=== PATIENT | male | born 1945 | race African-American/Black ===

== ENCOUNTER 2017-07-12 14:30 | Inpatient (IN) | payer MEDICARE, BC ==
[~2017-07-12] VITALS: Ht 177 cm; Wt 108.9 kg
[~2017-07-12 14:30] MED LIST: AMBR10TA3 PO; AZEL205. INH; CARV20CP PO; CLOP75TA16 PO; FLUT1DIS ORI; HYDR25TA PO; LOSA50TA20 PO; OMEG-59 PO; SIMV40TA5 PO; TAMS0.4C31 PO
[2017-07-12 16:30] VITALS: BP 124/78
[2017-07-12] MEDS ORDERED: IPRATROPIUM/ALBUTEROL 0.5-3(2.5)MG/3ML NEB HHN PRN (16:45)
[2017-07-12] MEDS ORDERED: BISACODYL 10MG SUPP PR PRN (17:00)
[2017-07-12] MEDS ORDERED: LOSARTAN POTASSIUM 50 MG TABLET PO SCH (17:00)
[2017-07-12] MEDS ORDERED: ACETAMINOPHEN 325MG TABLET PO PRN (17:00)
[2017-07-12] MEDS ORDERED: DEXTROSE 50% WATER 50ML SYRINGE IV PRN (17:00)
[2017-07-12] MEDS ORDERED: RACEPINEPHRINE 2.25% 0.5ML NEB VIAL HHN PRN (18:30)
[2017-07-12 20:00] VITALS: BP 144/71
[2017-07-12] MEDS: METOPROLOL TARTRATE 50MG TABLET PO SCH (20:54)
[2017-07-12] MEDS: ATORVASTATIN CALCIUM 20MG TABLET PO SCH (20:55)
[2017-07-12] MEDS: FINASTERIDE 5MG TABLET PO SCH (20:55)
[2017-07-12] MEDS: APIXABAN 5 MG TABLET PO SCH (20:55)
[2017-07-12] MEDS: TAMSULOSIN HCL 0.4MG SR CAPSULE PO SCH (20:55)
[2017-07-12] MEDS: METOCLOPRAMIDE HCL 5MG TABLET PO SCH ×2 (20:55→23:55)
[2017-07-12] MEDS: AMIODARONE HCL 200 MG TABLET PO SCH (20:55)
[2017-07-12] MEDS: BACITRACIN ZINC 15GM TUBE TOP SCH (20:56)
[2017-07-12] MEDS: INSULIN LISPRO 100 UNITS/ML SUBCUT SCH (21:00)
[2017-07-12] MEDS: METRONIDAZOLE 500MG TABLET PO SCH (21:05)
[2017-07-12] MEDS: HYDRALAZINE HCL 100MG TABLET PO SCH (21:06)
[2017-07-12] MEDS: BLOOD SUGAR DIAGNOSTIC STRIP TEST SCH (21:46)
[2017-07-13] MEDS: HYDRALAZINE HCL 100MG TABLET PO SCH ×3 (06:00→23:40)
[2017-07-13] MEDS: METOCLOPRAMIDE HCL 5MG TABLET PO SCH ×4 (06:11→23:34)
[2017-07-13] MEDS: PANTOPRAZOLE 40MG DR TABLET PO SCH (06:11)
[2017-07-13] MEDS: METRONIDAZOLE 500MG TABLET PO SCH ×3 (06:12→21:50)
[2017-07-13] MEDS: BLOOD SUGAR DIAGNOSTIC STRIP TEST SCH ×4 (06:14→21:51)
[2017-07-13] MEDS: INSULIN LISPRO 100 UNITS/ML SUBCUT SCH ×4 (07:01→21:00)
[2017-07-13 07:17] LABS: BASOPHILS % 0.4 % (0.0-2.0); EOSINOPHILS % 3.7 % (0.0-5.0); HEMATOCRIT. 33.6 % (42.0-52.0); HEMOGLOBIN. 11.3 g/dL (14.0-18.0); LYMPHOCYTES % 8.6 % (20.0-50.0); MEAN CORPUSCULAR HEMOGLOBIN 30.1 pg (28.0-32.0); MEAN CORPUSCULAR VOLUME 89.8 fL (80.0-94.0); MEAN PLATELET VOLUME 10.1 fl (7.4-10.4); MONOCYTES % 9.2 % (2.0-8.0); NEUTROPHILS % 78.1 % (40.0-76.0); PLATELET 228 x1000/uL (130-400); RED BLOOD CELL COUNT 3.75 mill/uL (4.7-6.1); RED CELL DISTRIBUTION WIDTH 14.9 % (11.6-14.6)
[2017-07-13 07:41] LABS: CARBON DIOXIDE 27 mEq/L (21-32); CHLORIDE 107 mEq/L (98-107); PREALBUMIN 26.8 mg/dL (20.0-40.0)
[2017-07-13 08:00] VITALS: BP 124/67
[2017-07-13] MEDS: BACITRACIN ZINC 15GM TUBE TOP SCH ×2 (09:00→21:53)
[2017-07-13] MEDS: POTASSIUM CHLORIDE 20MEQ/PACKET PO SCH (09:12)
[2017-07-13] MEDS: LOSARTAN POTASSIUM 50 MG TABLET PO SCH (09:13)
[2017-07-13] MEDS: DOCUSATE SODIUM 250MG CAPSULE PO SCH (09:13)
[2017-07-13] MEDS: APIXABAN 5 MG TABLET PO SCH ×2 (09:13→17:49)
[2017-07-13] MEDS: LACTOBACILLUS GG CAPSULE PO SCH (09:13)
[2017-07-13] MEDS: FUROSEMIDE 40MG TABLET PO SCH (09:13)
[2017-07-13] MEDS: METOPROLOL TARTRATE 50MG TABLET PO SCH ×2 (09:14→21:51)
[2017-07-13] MEDS: HYDROCHLOROTHIAZIDE 25MG TABLET PO SCH (09:14)
[2017-07-13] MEDS: AMIODARONE HCL 200 MG TABLET PO SCH ×2 (09:14→21:50)
[2017-07-13] MEDS: POLYETHYLENE GLYCOL 3350 (17GM) 1 DOSE PACK PO SCH (09:14)
[2017-07-13 20:00] VITALS: BP 120/57
[2017-07-13] MEDS: FINASTERIDE 5MG TABLET PO SCH (21:50)
[2017-07-13] MEDS: ATORVASTATIN CALCIUM 20MG TABLET PO SCH (21:50)
[2017-07-13] MEDS: TAMSULOSIN HCL 0.4MG SR CAPSULE PO SCH (21:50)
[2017-07-14] MEDS: HYDRALAZINE HCL 100MG TABLET PO SCH ×3 (06:00→22:00)
[2017-07-14] MEDS: PANTOPRAZOLE 40MG DR TABLET PO SCH (06:12)
[2017-07-14] MEDS: METRONIDAZOLE 500MG TABLET PO SCH ×3 (06:12→21:51)
[2017-07-14] MEDS: BLOOD SUGAR DIAGNOSTIC STRIP TEST SCH ×4 (06:12→21:52)
[2017-07-14] MEDS: METOCLOPRAMIDE HCL 5MG TABLET PO SCH ×4 (06:12→23:38)
[2017-07-14] MEDS: INSULIN LISPRO 100 UNITS/ML SUBCUT SCH ×4 (06:13→21:00)
[2017-07-14 08:00] VITALS: BP 125/72
[2017-07-14] MEDS: POLYETHYLENE GLYCOL 3350 (17GM) 1 DOSE PACK PO SCH (09:07)
[2017-07-14] MEDS: APIXABAN 5 MG TABLET PO SCH ×2 (09:07→17:26)
[2017-07-14] MEDS: HYDROCHLOROTHIAZIDE 25MG TABLET PO SCH (09:07)
[2017-07-14] MEDS: POTASSIUM CHLORIDE 20MEQ/PACKET PO SCH (09:07)
[2017-07-14] MEDS: DOCUSATE SODIUM 250MG CAPSULE PO SCH (09:07)
[2017-07-14] MEDS: FUROSEMIDE 40MG TABLET PO SCH (09:07)
[2017-07-14] MEDS: LACTOBACILLUS GG CAPSULE PO SCH (09:07)
[2017-07-14] MEDS: AMIODARONE HCL 200 MG TABLET PO SCH ×2 (09:07→21:52)
[2017-07-14] MEDS: METOPROLOL TARTRATE 50MG TABLET PO SCH ×2 (09:08→21:51)
[2017-07-14] MEDS: LOSARTAN POTASSIUM 50 MG TABLET PO SCH (09:08)
[2017-07-14] MEDS: BACITRACIN ZINC 15GM TUBE TOP SCH ×2 (11:04→21:55)
[2017-07-14] MEDS: LETAIRIS 10 MG PO SCH (14:48)
[2017-07-14 20:00] VITALS: BP 104/63
[2017-07-14] MEDS: ATORVASTATIN CALCIUM 20MG TABLET PO SCH (21:51)
[2017-07-14] MEDS: FINASTERIDE 5MG TABLET PO SCH (21:51)
[2017-07-14] MEDS: TAMSULOSIN HCL 0.4MG SR CAPSULE PO SCH (21:52)
[2017-07-15] MEDS: HYDRALAZINE HCL 100MG TABLET PO SCH ×3 (06:00→21:31)
[2017-07-15] MEDS: BLOOD SUGAR DIAGNOSTIC STRIP TEST SCH ×4 (06:36→20:43)
[2017-07-15] MEDS: PANTOPRAZOLE 40MG DR TABLET PO SCH (06:36)
[2017-07-15] MEDS: METOCLOPRAMIDE HCL 5MG TABLET PO SCH ×4 (06:36→23:06)
[2017-07-15] MEDS: INSULIN LISPRO 100 UNITS/ML SUBCUT SCH ×4 (06:36→20:43)
[2017-07-15] MEDS: METRONIDAZOLE 500MG TABLET PO SCH ×3 (06:36→21:31)
[2017-07-15 06:58] LABS: FERRITIN 396 ng/mL (22-322)
[2017-07-15 07:10] LABS: BASOPHILS % 0.6 % (0.0-2.0); EOSINOPHILS % 2.8 % (0.0-5.0); HEMATOCRIT. 33.8 % (42.0-52.0); HEMOGLOBIN. 11.2 g/dL (14.0-18.0); LYMPHOCYTES % 10.9 % (20.0-50.0); MEAN CORPUSCULAR HEMOGLOBIN 29.6 pg (28.0-32.0); MEAN CORPUSCULAR VOLUME 89.4 fL (80.0-94.0); MEAN PLATELET VOLUME 10.4 fl (7.4-10.4); MONOCYTES % 9.7 % (2.0-8.0); PLATELET 254 x1000/uL (130-400); RED BLOOD CELL COUNT 3.78 mill/uL (4.7-6.1); RED CELL DISTRIBUTION WIDTH 14.8 % (11.6-14.6)
[2017-07-15 07:18] LABS: CARBON DIOXIDE 25 mEq/L (21-32); CHLORIDE 107 mEq/L (98-107)
[2017-07-15 07:32] LABS: PHOSPHORUS 3.1 mg/dL (2.5-4.9); TOTAL IRON BINDING CAPACITY 229 ug/dL (250-450)
[2017-07-15 07:55] LABS: VITAMIN B12 SERUM 1457 pg/mL (211-911)
[2017-07-15 08:00] VITALS: BP 105/48
[2017-07-15 08:00] LABS: FOLIC ACID (FOLATE) SERUM > 20.00 ng/mL (>5.38)
[2017-07-15 08:09] LABS: PROSTRATE SPECIFIC AG TOTAL 3.15 ng/mL (0.0-4.0)
[2017-07-15] MEDS: METOPROLOL TARTRATE 50MG TABLET PO SCH ×2 (09:00→20:42)
[2017-07-15] MEDS: LOSARTAN POTASSIUM 50 MG TABLET PO SCH (09:00)
[2017-07-15] MEDS: AMIODARONE HCL 200 MG TABLET PO SCH ×2 (09:19→20:42)
[2017-07-15] MEDS: LETAIRIS 10 MG PO SCH (09:19)
[2017-07-15] MEDS: BACITRACIN ZINC 15GM TUBE TOP SCH ×2 (09:20→20:43)
[2017-07-15] MEDS: POLYETHYLENE GLYCOL 3350 (17GM) 1 DOSE PACK PO SCH (09:20)
[2017-07-15] MEDS: POTASSIUM CHLORIDE 20MEQ/PACKET PO SCH (09:20)
[2017-07-15] MEDS: LACTOBACILLUS GG CAPSULE PO SCH (09:33)
[2017-07-15] MEDS: HYDROCHLOROTHIAZIDE 25MG TABLET PO SCH (09:33)
[2017-07-15] MEDS: DOCUSATE SODIUM 250MG CAPSULE PO SCH (09:33)
[2017-07-15] MEDS: FUROSEMIDE 40MG TABLET PO SCH (09:33)
[2017-07-15] MEDS: APIXABAN 5 MG TABLET PO SCH ×2 (09:33→17:06)
[2017-07-15 13:23] LABS: CLARITY URINE CLEAR (CLEAR); COLOR URINE DARK YELLOW (YELLOW); GLUCOSE URINE NEGATIVE (NEGATIVE); KETONES URINE NEGATIVE (NEGATIVE); LEUKOCYTE ESTERASE URINE 1+ (NEGATIVE); NITRITE URINE POSITIVE (NEGATIVE); OCCULT BLOOD URINE TRACE (NEGATIVE); PROTEIN URINE 2+ (NEGATIVE); SPECIFIC GRAVITY URINE 1.023 (1.005-1.030)
[2017-07-15] MEDS: FERROUS SULFATE 325MG TABLET PO SCH (17:06)
[2017-07-15 20:00] VITALS: BP 126/79
[2017-07-15] MEDS: ATORVASTATIN CALCIUM 20MG TABLET PO SCH (20:41)
[2017-07-15] MEDS: TAMSULOSIN HCL 0.4MG SR CAPSULE PO SCH (20:42)
[2017-07-15] MEDS: FINASTERIDE 5MG TABLET PO SCH (20:42)
[2017-07-16] MEDS: METRONIDAZOLE 500MG TABLET PO SCH ×3 (05:30→21:02)
[2017-07-16] MEDS: METOCLOPRAMIDE HCL 5MG TABLET PO SCH ×4 (05:30→23:06)
[2017-07-16] MEDS: HYDRALAZINE HCL 100MG TABLET PO SCH ×3 (05:30→21:02)
[2017-07-16] MEDS: PANTOPRAZOLE 40MG DR TABLET PO SCH (06:19)
[2017-07-16] MEDS: BLOOD SUGAR DIAGNOSTIC STRIP TEST SCH ×4 (06:19→20:46)
[2017-07-16] MEDS: INSULIN LISPRO 100 UNITS/ML SUBCUT SCH ×4 (07:01→20:55)
[2017-07-16 08:00] VITALS: BP 108/65
[2017-07-16] MEDS: LOSARTAN POTASSIUM 50 MG TABLET PO SCH (08:32)
[2017-07-16] MEDS: METOPROLOL TARTRATE 50MG TABLET PO SCH ×2 (08:32→20:42)
[2017-07-16] MEDS: HYDROCHLOROTHIAZIDE 25MG TABLET PO SCH (08:33)
[2017-07-16] MEDS: DOCUSATE SODIUM 250MG CAPSULE PO SCH (08:44)
[2017-07-16] MEDS: POTASSIUM CHLORIDE 20MEQ/PACKET PO SCH (08:44)
[2017-07-16] MEDS: FUROSEMIDE 40MG TABLET PO SCH (08:44)
[2017-07-16] MEDS: LACTOBACILLUS GG CAPSULE PO SCH (08:44)
[2017-07-16] MEDS: AMIODARONE HCL 200 MG TABLET PO SCH ×2 (08:44→20:42)
[2017-07-16] MEDS: FERROUS SULFATE 325MG TABLET PO SCH ×3 (08:44→17:30)
[2017-07-16] MEDS: POLYETHYLENE GLYCOL 3350 (17GM) 1 DOSE PACK PO SCH (08:44)
[2017-07-16] MEDS: APIXABAN 5 MG TABLET PO SCH ×2 (08:45→17:29)
[2017-07-16] MEDS: ASCORBIC ACID 500 MG TABLET PO SCH (08:45)
[2017-07-16] MEDS: LETAIRIS 10 MG PO SCH (08:45)
[2017-07-16] MEDS: BACITRACIN ZINC 15GM TUBE TOP SCH ×2 (08:50→20:41)
[2017-07-16 20:00] VITALS: BP 110/66
[2017-07-16] MEDS: TAMSULOSIN HCL 0.4MG SR CAPSULE PO SCH (20:42)
[2017-07-16] MEDS: ATORVASTATIN CALCIUM 20MG TABLET PO SCH (20:42)
[2017-07-16] MEDS: FINASTERIDE 5MG TABLET PO SCH (20:42)
[2017-07-17] MEDS: METRONIDAZOLE 500MG TABLET PO SCH ×3 (05:32→21:56)
[2017-07-17] MEDS: HYDRALAZINE HCL 100MG TABLET PO SCH ×3 (05:32→22:00)
[2017-07-17] MEDS: METOCLOPRAMIDE HCL 5MG TABLET PO SCH ×4 (05:32→23:05)
[2017-07-17] MEDS: BLOOD SUGAR DIAGNOSTIC STRIP TEST SCH ×4 (05:35→21:00)
[2017-07-17] MEDS: INSULIN LISPRO 100 UNITS/ML SUBCUT SCH ×4 (07:00→21:59)
[2017-07-17 08:00] VITALS: BP 99/55
[2017-07-17] MEDS: HYDROCHLOROTHIAZIDE 25MG TABLET PO SCH (09:00)
[2017-07-17] MEDS: METOPROLOL TARTRATE 50MG TABLET PO SCH ×2 (09:00→21:57)
[2017-07-17] MEDS: LOSARTAN POTASSIUM 50 MG TABLET PO SCH (09:00)
[2017-07-17] MEDS: FUROSEMIDE 40MG TABLET PO SCH (09:52)
[2017-07-17] MEDS: FERROUS SULFATE 325MG TABLET PO SCH ×3 (09:52→17:05)
[2017-07-17] MEDS: DOCUSATE SODIUM 250MG CAPSULE PO SCH (09:52)
[2017-07-17] MEDS: POLYETHYLENE GLYCOL 3350 (17GM) 1 DOSE PACK PO SCH (09:52)
[2017-07-17] MEDS: FAMOTIDINE 20MG TABLET PO SCH ×2 (09:52→17:05)
[2017-07-17] MEDS: POTASSIUM CHLORIDE 20MEQ/PACKET PO SCH (09:52)
[2017-07-17] MEDS: ASCORBIC ACID 500 MG TABLET PO SCH (09:52)
[2017-07-17] MEDS: APIXABAN 5 MG TABLET PO SCH ×2 (09:52→17:05)
[2017-07-17] MEDS: LACTOBACILLUS GG CAPSULE PO SCH (09:52)
[2017-07-17] MEDS: AMIODARONE HCL 200 MG TABLET PO SCH ×2 (09:52→21:58)
[2017-07-17] MEDS: BACITRACIN ZINC 15GM TUBE TOP SCH ×2 (09:53→22:00)
[2017-07-17] MEDS: LETAIRIS 10 MG PO SCH (09:53)
[2017-07-17 20:00] VITALS: BP 117/67
[2017-07-17] MEDS: FINASTERIDE 5MG TABLET PO SCH (21:56)
[2017-07-17] MEDS: ATORVASTATIN CALCIUM 20MG TABLET PO SCH (21:56)
[2017-07-17] MEDS: TAMSULOSIN HCL 0.4MG SR CAPSULE PO SCH (21:58)
[2017-07-18] MEDS: HYDRALAZINE HCL 100MG TABLET PO SCH ×3 (06:00→22:00)
[2017-07-18] MEDS: BLOOD SUGAR DIAGNOSTIC STRIP TEST SCH ×4 (06:01→21:00)
[2017-07-18] MEDS: INSULIN LISPRO 100 UNITS/ML SUBCUT SCH ×4 (06:04→21:00)
[2017-07-18 06:24] LABS: BASOPHILS % 0.7 % (0.0-2.0); EOSINOPHILS % 1.7 % (0.0-5.0); HEMATOCRIT. 36.5 % (42.0-52.0); HEMOGLOBIN. 12.3 g/dL (14.0-18.0); LYMPHOCYTES % 9.5 % (20.0-50.0); MEAN CORPUSCULAR HEMOGLOBIN 30.4 pg (28.0-32.0); MEAN CORPUSCULAR VOLUME 90.4 fL (80.0-94.0); MEAN PLATELET VOLUME 10.4 fl (7.4-10.4); MONOCYTES % 10.9 % (2.0-8.0); NEUTROPHILS % 77.2 % (40.0-76.0); PLATELET 247 x1000/uL (130-400); RED BLOOD CELL COUNT 4.03 mill/uL (4.7-6.1)
[2017-07-18] MEDS: METRONIDAZOLE 500MG TABLET PO SCH (06:39)
[2017-07-18] MEDS: METOCLOPRAMIDE HCL 5MG TABLET PO SCH ×4 (06:39→23:45)
[2017-07-18 07:21] LABS: CHLORIDE 104 mEq/L (98-107)
[2017-07-18 07:47] LABS: CARBON DIOXIDE 20 mEq/L (21-32)
[2017-07-18 08:00] VITALS: BP 108/58
[2017-07-18 08:15] LABS: 25-HYDROXY VITAMIN D3 16 ng/mL (.)
[2017-07-18] MEDS: HYDROCHLOROTHIAZIDE 25MG TABLET PO SCH (08:16)
[2017-07-18] MEDS: LOSARTAN POTASSIUM 50 MG TABLET PO SCH (08:16)
[2017-07-18] MEDS: METOPROLOL TARTRATE 50MG TABLET PO SCH ×2 (08:17→21:00)
[2017-07-18] MEDS: POTASSIUM CHLORIDE 20MEQ/PACKET PO SCH (09:42)
[2017-07-18] MEDS: DOCUSATE SODIUM 250MG CAPSULE PO SCH (09:46)
[2017-07-18] MEDS: FUROSEMIDE 40MG TABLET PO SCH (09:47)
[2017-07-18] MEDS: FAMOTIDINE 20MG TABLET PO SCH ×2 (09:47→17:40)
[2017-07-18] MEDS: ASCORBIC ACID 500 MG TABLET PO SCH (09:47)
[2017-07-18] MEDS: LACTOBACILLUS GG CAPSULE PO SCH (09:48)
[2017-07-18] MEDS: AMIODARONE HCL 200 MG TABLET PO SCH ×2 (09:48→22:03)
[2017-07-18] MEDS: FERROUS SULFATE 325MG TABLET PO SCH ×3 (09:48→17:40)
[2017-07-18] MEDS: APIXABAN 5 MG TABLET PO SCH ×2 (09:49→17:41)
[2017-07-18] MEDS: LETAIRIS 10 MG PO SCH (09:49)
[2017-07-18] MEDS: POLYETHYLENE GLYCOL 3350 (17GM) 1 DOSE PACK PO SCH (09:50)
[2017-07-18] MEDS: BACITRACIN ZINC 15GM TUBE TOP SCH ×2 (09:52→22:05)
[2017-07-18] MEDS ORDERED: ERGOCALCIFEROL 50000UNITS CAPSULE PO SCH (13:15)
[2017-07-18 20:00] VITALS: BP 102/61
[2017-07-18] MEDS: ATORVASTATIN CALCIUM 20MG TABLET PO SCH (22:02)
[2017-07-18] MEDS: TAMSULOSIN HCL 0.4MG SR CAPSULE PO SCH (22:03)
[2017-07-18] MEDS: FINASTERIDE 5MG TABLET PO SCH (22:03)
[2017-07-18] MEDS: FLUTICASONE PROPIONATE 50MCG/SPRAY BOTTLE BOTHNSTRLS SCH (22:06)
[2017-07-19] MEDS: HYDRALAZINE HCL 100MG TABLET PO SCH ×3 (05:42→20:57)
[2017-07-19] MEDS: INSULIN LISPRO 100 UNITS/ML SUBCUT SCH ×4 (05:42→20:57)
[2017-07-19] MEDS: METOCLOPRAMIDE HCL 5MG TABLET PO SCH ×4 (05:42→23:04)
[2017-07-19] MEDS: BLOOD SUGAR DIAGNOSTIC STRIP TEST SCH ×4 (05:42→20:56)
[2017-07-19 08:00] VITALS: BP 118/71
[2017-07-19] MEDS: BACITRACIN ZINC 15GM TUBE TOP SCH ×2 (09:21→21:01)
[2017-07-19] MEDS: FLUTICASONE PROPIONATE 50MCG/SPRAY BOTTLE BOTHNSTRLS SCH ×2 (09:21→20:55)
[2017-07-19] MEDS: POLYETHYLENE GLYCOL 3350 (17GM) 1 DOSE PACK PO SCH (09:22)
[2017-07-19] MEDS: FERROUS SULFATE 325MG TABLET PO SCH ×3 (09:22→17:15)
[2017-07-19] MEDS: DOCUSATE SODIUM 250MG CAPSULE PO SCH (09:22)
[2017-07-19] MEDS: FUROSEMIDE 40MG TABLET PO SCH (09:22)
[2017-07-19] MEDS: HYDROCHLOROTHIAZIDE 25MG TABLET PO SCH (09:22)
[2017-07-19] MEDS: POTASSIUM CHLORIDE 20MEQ/PACKET PO SCH (09:22)
[2017-07-19] MEDS: AMIODARONE HCL 200 MG TABLET PO SCH ×2 (09:23→20:55)
[2017-07-19] MEDS: ASCORBIC ACID 500 MG TABLET PO SCH (09:23)
[2017-07-19] MEDS: FAMOTIDINE 20MG TABLET PO SCH ×2 (09:23→17:15)
[2017-07-19] MEDS: LOSARTAN POTASSIUM 50 MG TABLET PO SCH (09:23)
[2017-07-19] MEDS: LACTOBACILLUS GG CAPSULE PO SCH (09:23)
[2017-07-19] MEDS: APIXABAN 5 MG TABLET PO SCH ×2 (09:23→17:15)
[2017-07-19] MEDS: METOPROLOL TARTRATE 50MG TABLET PO SCH ×2 (09:24→20:56)
[2017-07-19] MEDS: LETAIRIS 10 MG PO SCH (09:29)
[2017-07-19 14:00] VITALS: BP 105/64
[2017-07-19 20:00] VITALS: BP 97/44
[2017-07-19] MEDS: ATORVASTATIN CALCIUM 20MG TABLET PO SCH (20:55)
[2017-07-19] MEDS: FINASTERIDE 5MG TABLET PO SCH (20:56)
[2017-07-19] MEDS: TAMSULOSIN HCL 0.4MG SR CAPSULE PO SCH (20:56)
[2017-07-20] MEDS: HYDRALAZINE HCL 100MG TABLET PO SCH ×3 (06:00→21:16)
[2017-07-20] MEDS: METOCLOPRAMIDE HCL 5MG TABLET PO SCH ×4 (06:07→23:04)
[2017-07-20] MEDS: BLOOD SUGAR DIAGNOSTIC STRIP TEST SCH ×4 (06:07→21:13)
[2017-07-20] MEDS: INSULIN LISPRO 100 UNITS/ML SUBCUT SCH ×4 (06:22→21:00)
[2017-07-20 08:00] VITALS: BP 109/60
[2017-07-20] MEDS: POTASSIUM CHLORIDE 20MEQ/PACKET PO SCH (08:24)
[2017-07-20] MEDS: POLYETHYLENE GLYCOL 3350 (17GM) 1 DOSE PACK PO SCH (08:24)
[2017-07-20] MEDS: FLUTICASONE PROPIONATE 50MCG/SPRAY BOTTLE BOTHNSTRLS SCH ×2 (08:25→21:12)
[2017-07-20] MEDS: BACITRACIN ZINC 15GM TUBE TOP SCH ×2 (08:25→21:14)
[2017-07-20] MEDS: FAMOTIDINE 20MG TABLET PO SCH ×2 (08:26→17:53)
[2017-07-20] MEDS: LETAIRIS 10 MG PO SCH (08:26)
[2017-07-20] MEDS: FUROSEMIDE 40MG TABLET PO SCH (08:26)
[2017-07-20] MEDS: HYDROCHLOROTHIAZIDE 25MG TABLET PO SCH (08:27)
[2017-07-20] MEDS: LACTOBACILLUS GG CAPSULE PO SCH (08:27)
[2017-07-20] MEDS: AMIODARONE HCL 200 MG TABLET PO SCH ×2 (08:27→21:12)
[2017-07-20] MEDS: METOPROLOL TARTRATE 50MG TABLET PO SCH ×2 (08:27→21:00)
[2017-07-20] MEDS: DOCUSATE SODIUM 250MG CAPSULE PO SCH (08:27)
[2017-07-20] MEDS: ASCORBIC ACID 500 MG TABLET PO SCH (08:28)
[2017-07-20] MEDS: APIXABAN 5 MG TABLET PO SCH ×2 (08:28→17:53)
[2017-07-20] MEDS: LOSARTAN POTASSIUM 50 MG TABLET PO SCH (08:28)
[2017-07-20] MEDS: FERROUS SULFATE 325MG TABLET PO SCH ×3 (08:28→17:53)
[2017-07-20 20:00] VITALS: BP 108/66
[2017-07-20] MEDS: FINASTERIDE 5MG TABLET PO SCH (21:12)
[2017-07-20] MEDS: ATORVASTATIN CALCIUM 20MG TABLET PO SCH (21:12)
[2017-07-20] MEDS: TAMSULOSIN HCL 0.4MG SR CAPSULE PO SCH (21:14)
[2017-07-21 05:52] LABS: BASOPHILS % 0.3 % (0.0-2.0); HEMATOCRIT. 33.7 % (42.0-52.0); HEMOGLOBIN. 11.1 g/dL (14.0-18.0); LYMPHOCYTES % 13.3 % (20.0-50.0); MEAN CORPUSCULAR HEMOGLOBIN 29.7 pg (28.0-32.0); MEAN CORPUSCULAR VOLUME 90.3 fL (80.0-94.0); MEAN PLATELET VOLUME 9.8 fl (7.4-10.4); MONOCYTES % 10.2 % (2.0-8.0); NEUTROPHILS % 74.2 % (40.0-76.0); PLATELET 224 x1000/uL (130-400); RED BLOOD CELL COUNT 3.73 mill/uL (4.7-6.1)
[2017-07-21] MEDS: HYDRALAZINE HCL 100MG TABLET PO SCH ×3 (06:00→21:13)
[2017-07-21] MEDS: METOCLOPRAMIDE HCL 5MG TABLET PO SCH ×4 (06:18→23:12)
[2017-07-21] MEDS: INSULIN LISPRO 100 UNITS/ML SUBCUT SCH ×4 (06:20→20:51)
[2017-07-21] MEDS: BLOOD SUGAR DIAGNOSTIC STRIP TEST SCH ×4 (06:20→20:52)
[2017-07-21 06:23] LABS: CHLORIDE 104 mEq/L (98-107)
[2017-07-21 06:42] LABS: CARBON DIOXIDE 24 mEq/L (21-32); PHOSPHORUS 3.9 mg/dL (2.5-4.9)
[2017-07-21 08:00] VITALS: BP 103/68
[2017-07-21] MEDS: ASCORBIC ACID 500 MG TABLET PO SCH (08:26)
[2017-07-21] MEDS: LACTOBACILLUS GG CAPSULE PO SCH (08:27)
[2017-07-21] MEDS: FAMOTIDINE 20MG TABLET PO SCH ×2 (08:27→17:57)
[2017-07-21] MEDS: METOPROLOL TARTRATE 50MG TABLET PO SCH ×2 (08:28→20:51)
[2017-07-21] MEDS: POTASSIUM CHLORIDE 20MEQ/PACKET PO SCH (08:28)
[2017-07-21] MEDS: POLYETHYLENE GLYCOL 3350 (17GM) 1 DOSE PACK PO SCH (08:28)
[2017-07-21] MEDS: APIXABAN 5 MG TABLET PO SCH ×2 (08:28→17:57)
[2017-07-21] MEDS: FUROSEMIDE 40MG TABLET PO SCH (08:28)
[2017-07-21] MEDS: AMIODARONE HCL 200 MG TABLET PO SCH ×2 (08:28→20:50)
[2017-07-21] MEDS: FERROUS SULFATE 325MG TABLET PO SCH ×3 (08:28→17:57)
[2017-07-21] MEDS: HYDROCHLOROTHIAZIDE 25MG TABLET PO SCH (08:28)
[2017-07-21] MEDS: LOSARTAN POTASSIUM 50 MG TABLET PO SCH (08:28)
[2017-07-21] MEDS: DOCUSATE SODIUM 250MG CAPSULE PO SCH (08:28)
[2017-07-21] MEDS: LETAIRIS 10 MG PO SCH (08:29)
[2017-07-21] MEDS: BACITRACIN ZINC 15GM TUBE TOP SCH ×2 (08:29→20:51)
[2017-07-21] MEDS: FLUTICASONE PROPIONATE 50MCG/SPRAY BOTTLE BOTHNSTRLS SCH ×2 (08:29→20:51)
[2017-07-21 20:00] VITALS: BP 106/64
[2017-07-21] MEDS: FINASTERIDE 5MG TABLET PO SCH (20:50)
[2017-07-21] MEDS: ATORVASTATIN CALCIUM 20MG TABLET PO SCH (20:50)
[2017-07-21] MEDS: TAMSULOSIN HCL 0.4MG SR CAPSULE PO SCH (20:50)
[2017-07-22] MEDS: HYDRALAZINE HCL 100MG TABLET PO SCH ×3 (05:37→21:11)
[2017-07-22] MEDS: METOCLOPRAMIDE HCL 5MG TABLET PO SCH ×4 (05:37→23:05)
[2017-07-22] MEDS: BLOOD SUGAR DIAGNOSTIC STRIP TEST SCH ×4 (06:24→20:35)
[2017-07-22] MEDS: INSULIN LISPRO 100 UNITS/ML SUBCUT SCH ×4 (07:02→21:11)
[2017-07-22 08:00] VITALS: BP 86/55
[2017-07-22] MEDS: LOSARTAN POTASSIUM 50 MG TABLET PO SCH (08:18)
[2017-07-22] MEDS: HYDROCHLOROTHIAZIDE 25MG TABLET PO SCH (08:18)
[2017-07-22] MEDS: METOPROLOL TARTRATE 50MG TABLET PO SCH ×2 (08:18→20:35)
[2017-07-22] MEDS: FUROSEMIDE 40MG TABLET PO SCH (08:19)
[2017-07-22] MEDS: POLYETHYLENE GLYCOL 3350 (17GM) 1 DOSE PACK PO SCH (09:00)
[2017-07-22] MEDS: POTASSIUM CHLORIDE 20MEQ/PACKET PO SCH (09:47)
[2017-07-22] MEDS: FERROUS SULFATE 325MG TABLET PO SCH ×3 (09:48→17:29)
[2017-07-22] MEDS: APIXABAN 5 MG TABLET PO SCH ×2 (09:48→17:29)
[2017-07-22] MEDS: LACTOBACILLUS GG CAPSULE PO SCH (09:48)
[2017-07-22] MEDS: DOCUSATE SODIUM 250MG CAPSULE PO SCH (09:48)
[2017-07-22] MEDS: AMIODARONE HCL 200 MG TABLET PO SCH ×2 (09:49→20:34)
[2017-07-22] MEDS: ASCORBIC ACID 500 MG TABLET PO SCH (09:49)
[2017-07-22] MEDS: FAMOTIDINE 20MG TABLET PO SCH ×2 (09:49→17:29)
[2017-07-22] MEDS: LETAIRIS 10 MG PO SCH (09:50)
[2017-07-22] MEDS: FLUTICASONE PROPIONATE 50MCG/SPRAY BOTTLE BOTHNSTRLS SCH ×2 (09:50→20:35)
[2017-07-22] MEDS: BACITRACIN ZINC 15GM TUBE TOP SCH ×2 (09:53→20:35)
[2017-07-22 20:00] VITALS: BP 115/66
[2017-07-22] MEDS: TAMSULOSIN HCL 0.4MG SR CAPSULE PO SCH (20:34)
[2017-07-22] MEDS: ATORVASTATIN CALCIUM 20MG TABLET PO SCH (20:34)
[2017-07-22] MEDS: FINASTERIDE 5MG TABLET PO SCH (20:35)
[2017-07-23] MEDS: HYDRALAZINE HCL 100MG TABLET PO SCH ×3 (05:39→22:00)
[2017-07-23] MEDS: METOCLOPRAMIDE HCL 5MG TABLET PO SCH ×3 (05:39→17:05)
[2017-07-23] MEDS: BLOOD SUGAR DIAGNOSTIC STRIP TEST SCH ×4 (06:25→23:00)
[2017-07-23 07:00] VITALS: BP 100/62
[2017-07-23] MEDS: INSULIN LISPRO 100 UNITS/ML SUBCUT SCH ×4 (07:06→23:00)
[2017-07-23 08:48] LABS: BASOPHILS % 0.6 % (0.0-2.0); EOSINOPHILS % 1.1 % (0.0-5.0); HEMATOCRIT. 35.1 % (42.0-52.0); HEMOGLOBIN. 11.6 g/dL (14.0-18.0); LYMPHOCYTES % 9.1 % (20.0-50.0); MEAN CORPUSCULAR VOLUME 90.9 fL (80.0-94.0); MEAN PLATELET VOLUME 9.7 fl (7.4-10.4); MONOCYTES % 7.4 % (2.0-8.0); NEUTROPHILS % 81.8 % (40.0-76.0); PLATELET 221 x1000/uL (130-400); RED BLOOD CELL COUNT 3.86 mill/uL (4.7-6.1); RED CELL DISTRIBUTION WIDTH 15.5 % (11.6-14.6)
[2017-07-23] MEDS: LOSARTAN POTASSIUM 50 MG TABLET PO SCH (09:00)
[2017-07-23] MEDS: METOPROLOL TARTRATE 50MG TABLET PO SCH ×2 (09:00→20:27)
[2017-07-23 09:54] LABS: CHLORIDE 103 mEq/L (98-107)
[2017-07-23 10:00] LABS: CARBON DIOXIDE 24 mEq/L (21-32)
[2017-07-23] MEDS: POLYETHYLENE GLYCOL 3350 (17GM) 1 DOSE PACK PO SCH (10:03)
[2017-07-23] MEDS: HYDROCHLOROTHIAZIDE 25MG TABLET PO SCH (10:03)
[2017-07-23] MEDS: APIXABAN 5 MG TABLET PO SCH ×2 (10:03→17:05)
[2017-07-23] MEDS: LACTOBACILLUS GG CAPSULE PO SCH (10:03)
[2017-07-23] MEDS: FUROSEMIDE 40MG TABLET PO SCH (10:03)
[2017-07-23] MEDS: AMIODARONE HCL 200 MG TABLET PO SCH ×2 (10:04→20:26)
[2017-07-23] MEDS: FERROUS SULFATE 325MG TABLET PO SCH ×3 (10:04→17:05)
[2017-07-23] MEDS: DOCUSATE SODIUM 250MG CAPSULE PO SCH (10:04)
[2017-07-23] MEDS: FAMOTIDINE 20MG TABLET PO SCH ×2 (10:04→17:05)
[2017-07-23] MEDS: ASCORBIC ACID 500 MG TABLET PO SCH (10:04)
[2017-07-23] MEDS: POTASSIUM CHLORIDE 20MEQ/PACKET PO SCH (10:04)
[2017-07-23] MEDS: FLUTICASONE PROPIONATE 50MCG/SPRAY BOTTLE BOTHNSTRLS SCH ×2 (10:05→20:36)
[2017-07-23] MEDS: LETAIRIS 10 MG PO SCH (10:05)
[2017-07-23] MEDS: BACITRACIN ZINC 15GM TUBE TOP SCH ×2 (10:06→23:00)
[2017-07-23 13:50] VITALS: BP 106/59
[2017-07-23 20:00] VITALS: BP 109/66
[2017-07-23] MEDS: TAMSULOSIN HCL 0.4MG SR CAPSULE PO SCH (20:26)
[2017-07-23] MEDS: ATORVASTATIN CALCIUM 20MG TABLET PO SCH (20:26)
[2017-07-23] MEDS: FINASTERIDE 5MG TABLET PO SCH (20:28)
[2017-07-24] MEDS: METOCLOPRAMIDE HCL 5MG TABLET PO SCH ×3 (00:17→12:24)
[2017-07-24] MEDS: HYDRALAZINE HCL 100MG TABLET PO SCH (00:24)
[2017-07-24 06:11] VITALS: BP 106/65
[2017-07-24] MEDS: BLOOD SUGAR DIAGNOSTIC STRIP TEST SCH ×2 (06:20→11:27)
[2017-07-24 08:00] VITALS: BP 105/68
[2017-07-24] MEDS: FERROUS SULFATE 325MG TABLET PO SCH ×2 (08:47→12:24)
[2017-07-24] MEDS: POLYETHYLENE GLYCOL 3350 (17GM) 1 DOSE PACK PO SCH (08:47)
[2017-07-24] MEDS: POTASSIUM CHLORIDE 20MEQ/PACKET PO SCH (08:47)
[2017-07-24] MEDS: ASCORBIC ACID 500 MG TABLET PO SCH (08:47)
[2017-07-24] MEDS: FAMOTIDINE 20MG TABLET PO SCH (08:47)
[2017-07-24] MEDS: DOCUSATE SODIUM 250MG CAPSULE PO SCH (08:47)
[2017-07-24] MEDS: LACTOBACILLUS GG CAPSULE PO SCH (08:47)
[2017-07-24] MEDS: HYDROCHLOROTHIAZIDE 25MG TABLET PO SCH (08:47)
[2017-07-24] MEDS: AMIODARONE HCL 200 MG TABLET PO SCH (08:47)
[2017-07-24] MEDS: APIXABAN 5 MG TABLET PO SCH (08:47)
[2017-07-24] MEDS: FUROSEMIDE 40MG TABLET PO SCH (08:47)
[2017-07-24] MEDS: LETAIRIS 10 MG PO SCH (08:48)
[2017-07-24] MEDS: BACITRACIN ZINC 15GM TUBE TOP SCH (08:48)
[2017-07-24] MEDS: INSULIN LISPRO 100 UNITS/ML SUBCUT SCH ×2 (08:49→11:27)
[2017-07-24] MEDS: METOPROLOL TARTRATE 50MG TABLET PO SCH (08:49)
[2017-07-24] MEDS: LOSARTAN POTASSIUM 50 MG TABLET PO SCH (08:49)
[2017-07-24 12:55] VITALS: BP 102/69
[2017-07-24 13:01] VITALS: BP 102/69
[2017-07-24] MEDS ORDERED: HYDRALAZINE HCL 100MG TABLET PO SCH (14:00)
== END 2017-07-24 13:45 | disposition home health service (06) | DRG 919 ==
PROVIDERS: ADMIT Physical Medicine & Rehabilitation Spinal Cord Injury Medicine; ATTEND Internal Medicine Nephrology
PROC: 5A09557 Assistance with Respiratory Ventilation, Greater than 96 Consecutive Hours, Continuous Positive Airway Pressure (ICD-10-PCS; principal; 2017-07-12)
DX: T81.31XA Disruption of external operation (surgical) wound, not elsewhere classified, initial encounter (principal); J96.20 Acute and chronic respiratory failure, unspecified whether with hypoxia or hypercapnia; J15.1 Pneumonia due to Pseudomonas; I82.401 Acute embolism and thrombosis of unspecified deep veins of right lower extremity; E11.65 Type 2 diabetes mellitus with hyperglycemia; E11.22 Type 2 diabetes mellitus with diabetic chronic kidney disease; D69.6 Thrombocytopenia, unspecified; I13.0 Hypertensive heart and chronic kidney disease with heart failure and stage 1 through stage 4 chronic kidney disease, or unspecified chronic kidney disease; I50.32 Chronic diastolic (congestive) heart failure; J44.0 Chronic obstructive pulmonary disease with (acute) lower respiratory infection; I25.110 Atherosclerotic heart disease of native coronary artery with unstable angina pectoris; I27.20 Pulmonary hypertension, unspecified; I48.91 Unspecified atrial fibrillation; K59.00 Constipation, unspecified; N18.9 Chronic kidney disease, unspecified; N40.1 Benign prostatic hyperplasia with lower urinary tract symptoms; R33.9 Retention of urine, unspecified; E55.9 Vitamin D deficiency, unspecified; R53.81 Other malaise; R31.9 Hematuria, unspecified; E66.01 Morbid (severe) obesity due to excess calories; G47.33 Obstructive sleep apnea (adult) (pediatric); R19.7 Diarrhea, unspecified; F41.9 Anxiety disorder, unspecified; F06.31 Mood disorder due to known physiological condition with depressive features; E78.5 Hyperlipidemia, unspecified; D64.9 Anemia, unspecified; R26.9 Unspecified abnormalities of gait and mobility; R33.8 Other retention of urine; E87.6 Hypokalemia; Z79.01 Long term (current) use of anticoagulants; Z87.09 Personal history of other diseases of the respiratory system; Z82.49 Family history of ischemic heart disease and other diseases of the circulatory system; Z87.440 Personal history of urinary (tract) infections; Z95.1 Presence of aortocoronary bypass graft; Z68.34 Body mass index [BMI] 34.0-34.9, adult; Z91.018 Allergy to other foods
CPT/HCPCS: 36415; 71010; 80048; 80053; 81001; 82306; 82607; 82728; 82746; 82962; 83036; 83540; 83550; 83735; 84100; 84134; 84153; 84443; 84630; 85025; 87040; 87086; 92523; 93970; 94640; 94660; 97110; 97116; 97163; 97167; 97530; 97535; J1815; J7620; J8597; A4315; A5200

== ENCOUNTER → 2017-09-25 | Outpatient (CLI) | payer MEDICARE, BC ==
[~2017-09-25] MED LIST changes: +BARIUM SULFATE 176 GM SUSP.RECON ONE; -CARV20CP PO; -CLOP75TA16 PO; +EZ-HD SUSPENSION(BARIUM SULFATE 340GM) PO ONE
== END | disposition home or self-care (01) ==
LOC: RAD 09:45
PROVIDERS: ATTEND Internal Medicine Critical Care Medicine
DX: R91.8 Other nonspecific abnormal finding of lung field (principal); Z98.890 Other specified postprocedural states
CPT/HCPCS: 71045; 74220

== ENCOUNTER → 2018-06-25 | Outpatient (CLI) | payer MEDICARE, BC ==
[~2018-06-25] MED LIST changes: +AMI2 PO; +ASCO500C15 PO; +ASPI-1159 PO; -BARIUM SULFATE 176 GM SUSP.RECON ONE; +CHOL100053 PO; -EZ-HD SUSPENSION(BARIUM SULFATE 340GM) PO ONE; +FINA5TAB11 PO; +FURO80TA87 PO; +HYDR50TA55 PO; +HYDROCHLOROTHIAZIDE PO; +KDUR10 PO; +LOSARTAN PO; +METOPROLOL PO
== END | disposition home or self-care (01) ==
LOC: CT 12:38
PROVIDERS: ATTEND Internal Medicine Critical Care Medicine
DX: J90 Pleural effusion, not elsewhere classified (principal); J98.11 Atelectasis; I31.9 Disease of pericardium, unspecified
CPT/HCPCS: 71250

== ENCOUNTER 2018-07-07 16:45 | Inpatient (IN) | payer MEDICARE, BC ==
[~2018-07-07] VITALS: Ht 175.3 cm; Wt 105.3 kg
[~2018-07-07 16:45] MED LIST changes: -AMI2 PO; -ASCO500C15 PO; -ASPI-1159 PO; -CHOL100053 PO; -FINA5TAB11 PO; -FURO80TA87 PO; -HYDR50TA55 PO; -HYDROCHLOROTHIAZIDE PO; -KDUR10 PO; -LOSARTAN PO; -METOPROLOL PO
[2018-07-07 18:13] VITALS: BP 120/71
[2018-07-07] MEDS ORDERED: ACETAMINOPHEN 325MG TABLET PO PRN (19:00)
[2018-07-07] MEDS ORDERED: DIATR MEGLU/DIATRIZOATE SOLN 30ML PO SCH (19:00)
[2018-07-07] MEDS ORDERED: CLONIDINE 0.1MG TABLET PO PRN (19:00)
[2018-07-07] MEDS ORDERED: ONDANSETRON HCL 4MG/2ML INJ IV PRN (19:00)
[2018-07-07] MEDS ORDERED: DOCUSATE SODIUM 100MG CAPSULE PO PRN (19:00)
[2018-07-07] MEDS ORDERED: MORPHINE SULFATE 4 MG/ML CPJ (NOT FOR IM USE) IV PRN (19:15)
[2018-07-07 19:35] LABS: BG BASE EXCESS 1.6 mmol/L (-2.0-2.0); BG CARBOXYHEMOGLOBIN 1.1 % (0.5-1.5); BG DEOXYHEMOGLOBIN 11.6 % (0.0-5.0); BG FRACTION INSPIRED OXYGEN 21; BG HCO3 ACT 25.5 mmol/L (22.0-26.0); BG METHEMOGLOBIN 0.3 % (0.0-1.5); BG OXYGEN SATURATION 88.2 % (92.0-98.5); BG PCO2 37.8 mmHg (35.0-45.0); BG PH 7.447 (7.350-7.450); BG PO2 53.3 mmHg (75.0-100.0); BG SAMPLE SITE LEFT RADIAL; BG TOTAL HEMOGLOBIN 12.6 g/dL (12.0-18.0); BG VENT MODE ROOM AIR
[2018-07-07 20:00] VITALS: BP 134/77
[2018-07-07 20:40] LABS: BASOPHILS % 0.4 % (0.0-2.0); EOSINOPHILS % 1.9 % (0.0-5.0); HEMATOCRIT. 34.7 % (42.0-52.0); HEMOGLOBIN. 11.5 g/dL (14.0-18.0); LYMPHOCYTES % 12.6 % (20.0-50.0); MEAN CORPUSCULAR HEMOGLOBIN 30.7 pg (28.0-32.0); MEAN PLATELET VOLUME 10.2 fl (7.4-10.4); MONOCYTES % 9.2 % (2.0-8.0); NEUTROPHILS % 75.9 % (40.0-76.0); PLATELET 129 x1000/uL (130-400); RED BLOOD CELL COUNT 3.73 mill/uL (4.7-6.1); RED CELL DISTRIBUTION WIDTH 16.1 % (11.6-14.6)
[2018-07-07] MEDS ORDERED: DIATR MEGLU/DIATRIZOATE SOLN 30ML PO ONE (20:45)
[2018-07-07] MEDS ORDERED: LEVOFLOXACIN 500MG PREMIX 100 ML IV SCH (21:00)
[2018-07-07] MEDS: FUROSEMIDE 40MG/4ML VIAL IV SCH (21:06)
[2018-07-07] MEDS: ATORVASTATIN CALCIUM 20MG TABLET PO SCH (21:18)
[2018-07-07 22:00] VITALS: BP 107/58
[2018-07-07] MEDS: SILDENAFIL CITRATE 20MG TABLET PO SCH (22:13)
[2018-07-07] MEDS ORDERED: ZOLPIDEM TARTRATE 5MG TABLET PO PRN (23:45)
[2018-07-07 23:46] VITALS: BP 94/53
[2018-07-08] VITALS (15 sets, daily range): BP systolic 90–116; BP diastolic 43–66
[2018-07-08] MEDS: IPRATROPIUM/ALBUTEROL 0.5-3(2.5)MG/3ML NEB INH SCH ×2 (00:15→20:15)
[2018-07-08] MEDS: TAMSULOSIN HCL 0.4MG SR CAPSULE PO SCH ×3 (01:08→17:00)
[2018-07-08] MEDS ORDERED: ASPI-1159 PO (02:25)
[2018-07-08] MEDS: SILDENAFIL CITRATE 20MG TABLET PO SCH ×3 (05:47→21:39)
[2018-07-08] MEDS ORDERED: HYDROCHLOROTHIAZIDE PO (06:29)
[2018-07-08] MEDS ORDERED: LOSARTAN PO (06:29)
[2018-07-08] MEDS ORDERED: FINA5TAB11 PO (06:30)
[2018-07-08] MEDS ORDERED: AMI2 PO (06:32)
[2018-07-08] MEDS ORDERED: KDUR10 PO (06:33)
[2018-07-08] MEDS ORDERED: ASCO500C15 PO (06:34)
[2018-07-08] MEDS ORDERED: FURO80TA87 PO (06:35)
[2018-07-08] MEDS ORDERED: CHOL100053 PO (06:37)
[2018-07-08] MEDS ORDERED: METOPROLOL PO (06:39)
[2018-07-08] MEDS ORDERED: HYDR50TA55 PO (06:49)
[2018-07-08 07:13] LABS: BASOPHILS % 0.3 % (0.0-2.0); EOSINOPHILS % 2.5 % (0.0-5.0); HEMATOCRIT. 31.7 % (42.0-52.0); HEMOGLOBIN. 10.5 g/dL (14.0-18.0); LYMPHOCYTES % 17.3 % (20.0-50.0); MEAN CORPUSCULAR HEMOGLOBIN 30.9 pg (28.0-32.0); MEAN CORPUSCULAR VOLUME 92.9 fL (80.0-94.0); MEAN PLATELET VOLUME 10.3 fl (7.4-10.4); NEUTROPHILS % 68.9 % (40.0-76.0); PLATELET 124 x1000/uL (130-400); RED BLOOD CELL COUNT 3.41 mill/uL (4.7-6.1)
[2018-07-08 07:16] LABS: CHLORIDE 105 mEq/L (98-107)
[2018-07-08] MEDS: FUROSEMIDE 40MG/4ML VIAL IV SCH (09:00)
[2018-07-08] MEDS ORDERED: OMEGA ACID ETHYL ESTERS PO SCH (09:00)
[2018-07-08] MEDS ORDERED: TAMSULOSIN HCL 0.4MG SR CAPSULE PO SCH (09:00)
[2018-07-08] MEDS ORDERED: ENOXAPARIN 30MG/0.3ML SYR SUBCUT SCH (09:00)
[2018-07-08] MEDS ORDERED: SALMETEROL ORI SCH (09:00)
[2018-07-08] MEDS ORDERED: FLUTICASONE ORI SCH (09:00)
[2018-07-08] MEDS ORDERED: AZELASTINE HCL INH SCH (09:00)
[2018-07-08] MEDS ORDERED: MEDICATION NOT ON FORMULARY EA (Ascorbic Acid (Vitamin C) 500 MG) PO SCH (09:00)
[2018-07-08] MEDS ORDERED: BUDESONIDE 0.5MG/2ML NEB HHN SCH (09:00)
[2018-07-08] MEDS: LOSARTAN POTASSIUM 25 MG TABLET PO SCH (09:00)
[2018-07-08] MEDS: ENOXAPARIN 100MG/ML SYR SUBCUT SCH ×2 (09:30→20:17)
[2018-07-08] MEDS: POTASSIUM CHLORIDE 20MEQ TABLET SR PO SCH (09:35)
[2018-07-08] MEDS: ASCORBIC ACID 500 MG TABLET PO SCH (09:35)
[2018-07-08] MEDS: FISH OIL/OMEGA-3 FATTY ACIDS 1000MG CAPSULE PO SCH ×2 (09:36→16:58)
[2018-07-08] MEDS: AMIODARONE HCL 200 MG TABLET PO SCH ×2 (09:41→20:16)
[2018-07-08 09:48] LABS: T4 FREE 1.68 ng/dL (0.76-1.46)
[2018-07-08] MEDS: AZELASTINE HCL 137MCG/SPRAY NASAL PUMP BOTHNSTRLS SCH ×2 (09:48→17:00)
[2018-07-08] MEDS ORDERED: SORBITOL 70% SOLN 30ML PO NR (10:00)
[2018-07-08 11:59] LABS: D-DIMER 1.46 mg/L FEU (<0.50); INR 1.2; PARTIAL THROMBOPLASTIN TIME 31.7 sec (23.4-31.0); PROTHROMBIN TIME 11.6 sec (9.1-11.1)
[2018-07-08] MEDS: FINASTERIDE 5MG TABLET PO SCH (12:10)
[2018-07-08] MEDS ORDERED: SODIUM BICARBONATE 4% (2.4MEQ) 5ML VIAL IV ONE (13:01)
[2018-07-08 17:29] LABS: CREATINE KINASE 54 IU/L (39-308); CREATINE KINASE MB FRACTION < 1.0 ng/mL (0.5-3.6)
[2018-07-08] MEDS: ATORVASTATIN CALCIUM 20MG TABLET PO SCH (20:16)
[2018-07-08] MEDS ORDERED: LEVOFLOXACIN 250MG PREMIX 50 ML IV SCH (22:00)
[2018-07-08] MEDS ORDERED: HYDROXYZINE 25MG TABLET PO SCH (22:00)
[2018-07-09] VITALS (10 sets, daily range): BP systolic 94–112; BP diastolic 44–66
[2018-07-09 01:44] LABS: CREATINE KINASE 50 IU/L (39-308); CREATINE KINASE MB FRACTION < 1.0 ng/mL (0.5-3.6)
[2018-07-09] MEDS: IPRATROPIUM/ALBUTEROL 0.5-3(2.5)MG/3ML NEB INH SCH (02:04)
[2018-07-09] MEDS: SILDENAFIL CITRATE 20MG TABLET PO SCH (06:03)
[2018-07-09] MEDS: AZELASTINE HCL 137MCG/SPRAY NASAL PUMP BOTHNSTRLS SCH (08:03)
[2018-07-09] MEDS: TAMSULOSIN HCL 0.4MG SR CAPSULE PO SCH (08:04)
[2018-07-09] MEDS: FINASTERIDE 5MG TABLET PO SCH (08:04)
[2018-07-09] MEDS: FISH OIL/OMEGA-3 FATTY ACIDS 1000MG CAPSULE PO SCH (08:04)
[2018-07-09] MEDS: FUROSEMIDE 40MG/4ML VIAL IV SCH (08:05)
[2018-07-09] MEDS: POTASSIUM CHLORIDE 20MEQ TABLET SR PO SCH (08:05)
[2018-07-09] MEDS: AMIODARONE HCL 200 MG TABLET PO SCH (08:05)
[2018-07-09] MEDS: ASCORBIC ACID 500 MG TABLET PO SCH (08:05)
[2018-07-09] MEDS: LOSARTAN POTASSIUM 25 MG TABLET PO SCH (08:05)
[2018-07-09] MEDS: ENOXAPARIN 100MG/ML SYR SUBCUT SCH (08:14)
[2018-07-09 08:30] LABS: CLARITY URINE CLEAR (CLEAR); COLOR URINE YELLOW (YELLOW); KETONES URINE NEGATIVE (NEGATIVE); LEUKOCYTE ESTERASE URINE NEGATIVE (NEGATIVE); NITRITE URINE NEGATIVE (NEGATIVE); OCCULT BLOOD URINE NEGATIVE (NEGATIVE); PROTEIN URINE NEGATIVE (NEGATIVE); SPECIFIC GRAVITY URINE 1.015 (1.005-1.030)
[2018-07-09] MEDS ORDERED: APIXABAN 5 MG TABLET PO SCH ×2 (10:30→17:00)
[2018-07-09 10:55] LABS: CREATINE KINASE 47 IU/L (39-308); CREATINE KINASE MB FRACTION < 1.0 ng/mL (0.5-3.6)
[2018-07-09 15:27] LABS: BASOPHILS % 0.2 % (0.0-2.0); HEMATOCRIT. 35.4 % (42.0-52.0); HEMOGLOBIN. 11.6 g/dL (14.0-18.0); LYMPHOCYTES % 9.6 % (20.0-50.0); MEAN CORPUSCULAR HEMOGLOBIN 30.9 pg (28.0-32.0); MEAN PLATELET VOLUME 10.7 fl (7.4-10.4); MONOCYTES % 9.7 % (2.0-8.0); NEUTROPHILS % 78.5 % (40.0-76.0); PLATELET 129 x1000/uL (130-400); RED BLOOD CELL COUNT 3.77 mill/uL (4.7-6.1); RED CELL DISTRIBUTION WIDTH 16.1 % (11.6-14.6)
[2018-07-09] MEDS ORDERED: LEVOFLOXACIN 500MG PREMIX 100 ML IV SCH (21:00)
[2018-07-09] MEDS ORDERED: CARVEDILOL 3.125 MG TABLET PO SCH (21:00)
[2018-07-14] MEDS ORDERED: CHOLECALCIFEROL 50000 UNIT PO SCH (09:00)
[2018-07-14] MEDS ORDERED: ERGOCALCIFEROL 50000UNITS CAPSULE PO SCH (09:00)
== END 2018-07-09 16:48 | disposition home or self-care (01) | DRG 682 ==
LOC: ORIP 16:45 → 3WST 17:25
PROVIDERS: ADMIT Internal Medicine Nephrology; ATTEND Internal Medicine Nephrology
PROC: 0W993ZZ Drainage of Right Pleural Cavity, Percutaneous Approach (ICD-10-PCS; principal; 2018-07-08)
DX: N17.9 Acute kidney failure, unspecified (principal); J96.21 Acute and chronic respiratory failure with hypoxia; E43 Unspecified severe protein-calorie malnutrition; J90 Pleural effusion, not elsewhere classified; I48.92 Unspecified atrial flutter; I13.0 Hypertensive heart and chronic kidney disease with heart failure and stage 1 through stage 4 chronic kidney disease, or unspecified chronic kidney disease; I50.42 Chronic combined systolic (congestive) and diastolic (congestive) heart failure; I95.9 Hypotension, unspecified; D64.9 Anemia, unspecified; E66.9 Obesity, unspecified; E78.5 Hyperlipidemia, unspecified; G47.33 Obstructive sleep apnea (adult) (pediatric); R33.8 Other retention of urine; I25.10 Atherosclerotic heart disease of native coronary artery without angina pectoris; I25.5 Ischemic cardiomyopathy; I27.20 Pulmonary hypertension, unspecified; I48.91 Unspecified atrial fibrillation; J44.9 Chronic obstructive pulmonary disease, unspecified; K59.00 Constipation, unspecified; N18.9 Chronic kidney disease, unspecified; N40.1 Benign prostatic hyperplasia with lower urinary tract symptoms; Z87.09 Personal history of other diseases of the respiratory system; Z90.79 Acquired absence of other genital organ(s); Z95.1 Presence of aortocoronary bypass graft; Z68.34 Body mass index [BMI] 34.0-34.9, adult; Z88.8 Allergy status to other drugs, medicaments and biological substances; Z91.018 Allergy to other foods
CPT/HCPCS: 32555; 36415; 36600; 71045; 71250; 74176; 80048; 80061; 82375; 82550; 82553; 82805; 83036; 83880; 84439; 84443; 84484; 85379; 93005; 93306; 93970; 94640; 94660; 97162; 97166; J1650; J1940; J1956; J3490; J7050; J7620; J7626; Q9963

== ENCOUNTER 2022-03-07 07:36 | Inpatient (IN) | payer BC, MEDICARE ==
[~2022-03-07] VITALS: Ht 152.4 cm; Wt 113.5 kg
[~2022-03-07 07:36] MED LIST changes: +ASCO500C15 PO; +ASPI-1497 PO; +CHOL100053 PO; +FINA5TAB11 PO; +HYDR50TA55 PO; +HYDROCHLOROTHIAZIDE PO; -LOSA50TA20 PO; +LOSARTAN PO; +METOPROLOL PO; +OMEG-161 PO; -OMEG-59 PO; +POTA-189 PO; +SIMV-46 PO; -SIMV40TA5 PO
[2022-03-07] MEDS ORDERED: ALBUTEROL (0.083%) 2.5MG/3ML NEB HHN STA (07:38)
[2022-03-07] MEDS ORDERED: MAGNESIUM 2 G PREMIX 50 ML IV STA (07:38)
[2022-03-07] MEDS ORDERED: METHYLPREDNISOLONE SOD SUCC 125 MG/2 ML VIAL IV STA (07:38)
[2022-03-07] MEDS ORDERED: IPRATROPIUM BROMIDE (0.02%) 0.5MG/2.5ML NEB HHN STA (07:38)
[2022-03-07 08:35] LABS: HEMATOCRIT. 42.5 % (42.0-52.0); HEMOGLOBIN. 13.8 g/dL (14.0-18.0); MEAN CORPUSCULAR HEMOGLOBIN 31.5 pg (28.0-32.0); MEAN PLATELET VOLUME 9.9 fl (7.4-10.4); PLATELET 104 x1000/uL (130-400); RED BLOOD CELL COUNT 4.39 mill/uL (4.7-6.1); RED CELL DISTRIBUTION WIDTH 15.1 % (11.6-14.6)
[2022-03-07 08:37] LABS: CHLORIDE 104 mEq/L (98-107)
[2022-03-07 08:38] LABS: INR 1.2; PROTHROMBIN TIME 13.1 sec (9.6-11.0)
[2022-03-07] MEDS ORDERED: SODIUM CHLORIDE 0.9% 1,000 ML IV ONE (08:45)
[2022-03-07] MEDS ORDERED: LEVOFLOXACIN 500MG PREMIX 100 ML IV ONE (08:45)
[2022-03-07] MEDS ORDERED: ONDANSETRON HCL 4MG/2ML INJ IV PRN (09:00)
[2022-03-07] MEDS ORDERED: ACETAMINOPHEN 325MG TABLET PO PRN (09:00)
[2022-03-07 09:33] LABS: PLATELET ESTIMATE DECREASED
[2022-03-07] MEDS ORDERED: ENOXAPARIN 30MG/0.3ML SYR SUBCUT SCH (10:00)
[2022-03-07] MEDS ORDERED: VANCOMYCIN 1G PREMIX 200 ML IV NR (10:00)
[2022-03-07] MEDS ORDERED: PIPERACILLIN/TAZOBACTAM 3.375 G in DEXTROSE 5% WATER 50 ML IV SCH (10:30)
[2022-03-07] MEDS: SODIUM CHLORIDE 0.45% 1,000 ML IV SCH ×2 (10:36→21:33)
[2022-03-07] MEDS ORDERED: DOCUSATE SODIUM 250MG CAPSULE PO PRN (10:45)
[2022-03-07] MEDS ORDERED: BISACODYL 5MG TABLET PO NR (11:00)
[2022-03-07] MEDS ORDERED: VANCOMYCIN 2,000 MG in DEXT 5% WATER 500 ML IV NR (11:00)
[2022-03-07] MEDS ORDERED: PIPERACILLIN/TAZ 3.375G PREMIX 50 ML IV NR (11:15)
[2022-03-07] MEDS ORDERED: FUROSEMIDE 20MG/2ML VIAL IVP NR (12:00)
[2022-03-07 12:03] LABS: BG BASE EXCESS -1.1 mmol/L (-2.0-2.0); BG CARBOXYHEMOGLOBIN 1.1 % (0.5-1.5); BG DEOXYHEMOGLOBIN 2.1 % (0.0-5.0); BG FRACTION INSPIRED OXYGEN 32; BG HCO3 ACT 22.8 mmol/L (22.0-26.0); BG METHEMOGLOBIN 0.3 % (0.0-1.5); BG OXYGEN SATURATION 97.9 % (92.0-98.5); BG OXYHEMOGLOBIN 96.5 % (94.0-97.0); BG PO2 104.3 mmHg (75.0-100.0); BG SAMPLE SITE RIGHT RADIAL; BG TOTAL HEMOGLOBIN 14.3 g/dL (12.0-18.0); BG VENT MODE NASAL CANNULA
[2022-03-07 14:00] VITALS: BP_SYST 113; BP_SYST 141; BP_DIAS 64; BP_DIAS 65
[2022-03-07] MEDS: IPRATROPIUM/ALBUTEROL 0.5-3(2.5)MG/3ML NEB HHN SCH ×2 (14:32→20:00)
[2022-03-07] MEDS: METHYLPREDNISOLONE SOD SUCC 125 MG/2 ML VIAL IV SCH ×2 (14:46→21:32)
[2022-03-07 16:00] VITALS: BP 119/66
[2022-03-07] MEDS: APIXABAN 5 MG TABLET PO SCH (16:48)
[2022-03-07] MEDS ORDERED: PIPERACILLIN/TAZ 3.375G PREMIX 50 ML IV SCH (17:00)
[2022-03-07] MEDS: METOPROLOL TARTRATE 25MG TABLET PO SCH ×2 (17:10→21:31)
[2022-03-07 18:00] VITALS: BP 122/80
[2022-03-07] MEDS ORDERED: DEXTROSE 50% WATER 50ML SYRINGE IV PRN (19:00)
[2022-03-07 20:00] VITALS: BP 119/74
[2022-03-07] MEDS: INSULIN LISPRO 100 UNITS/ML SUBCUT SCH (21:00)
[2022-03-07] MEDS: BLOOD SUGAR DIAGNOSTIC STRIP TEST SCH (21:14)
[2022-03-07] MEDS: PIPERACILLIN/TAZOBACTAM 3.375G in DEXT 5% WATER 50ML IV SCH (21:32)
[2022-03-07 22:00] VITALS: BP 127/57
[2022-03-08] VITALS (12 sets, daily range): BP systolic 101–133; BP diastolic 54–77
[2022-03-08] MEDS: IPRATROPIUM/ALBUTEROL 0.5-3(2.5)MG/3ML NEB HHN SCH ×4 (00:57→21:04)
[2022-03-08] MEDS ORDERED: GENTAMICIN SULFATE 150 MG in SODIUM CHLORIDE 0.9% 100 ML IV NR (03:00)
[2022-03-08] MEDS: PIPERACILLIN/TAZOBACTAM 3.375G in DEXT 5% WATER 50ML IV SCH ×3 (05:55→21:21)
[2022-03-08] MEDS: METHYLPREDNISOLONE SOD SUCC 125 MG/2 ML VIAL IV SCH (05:55)
[2022-03-08 07:06] LABS: HEMATOCRIT. 39.2 % (42.0-52.0); HEMOGLOBIN. 13.3 g/dL (14.0-18.0); MEAN CORPUSCULAR HEMOGLOBIN 32.2 pg (28.0-32.0); MEAN CORPUSCULAR VOLUME 94.8 fL (80.0-94.0); PLATELET 107 x1000/uL (130-400); RED BLOOD CELL COUNT 4.14 mill/uL (4.7-6.1)
[2022-03-08] MEDS: INSULIN LISPRO 100 UNITS/ML SUBCUT SCH ×4 (07:57→21:00)
[2022-03-08] MEDS: BLOOD SUGAR DIAGNOSTIC STRIP TEST SCH ×4 (07:57→21:21)
[2022-03-08 08:25] LABS: CHLORIDE 106 mEq/L (98-107)
[2022-03-08] MEDS: METOPROLOL TARTRATE 25MG TABLET PO SCH ×2 (08:59→21:20)
[2022-03-08] MEDS: APIXABAN 5 MG TABLET PO SCH ×2 (09:00→17:15)
[2022-03-08] MEDS ORDERED: VANCOMYCIN 1.25GM PMX (XELLIA) 250 ML IV SCH ×2 (11:00)
[2022-03-08] MEDS: SODIUM CHLORIDE 0.45% 1,000 ML IV SCH (12:29)
[2022-03-08 12:55] LABS: CLARITY URINE CLEAR (CLEAR); COLOR URINE DARK YELLOW (YELLOW); KETONES URINE TRACE (NEGATIVE); LEUKOCYTE ESTERASE URINE NEGATIVE (NEGATIVE); NITRITE URINE NEGATIVE (NEGATIVE); OCCULT BLOOD URINE NEGATIVE (NEGATIVE); PH URINE 5.5 (4.5-8.0); PROTEIN URINE NEGATIVE (NEGATIVE); SPECIFIC GRAVITY URINE 1.014 (1.005-1.030)
[2022-03-08 13:52] LABS: PLATELET ESTIMATE DECREASED
[2022-03-08] MEDS ORDERED: NA PHOS,M-B/NA PHOS,DI-BA ENEMA 118ML PR ONE (14:45)
[2022-03-08] MEDS ORDERED: LACTULOSE 20G/30ML UDC PO NR (14:45)
[2022-03-08] MEDS ORDERED: LACTULOSE 20G/30ML UDC PO PRN (14:45)
[2022-03-08] MEDS: FINASTERIDE 5MG TABLET PO SCH (15:13)
[2022-03-08] MEDS: TAMSULOSIN HCL 0.4MG SR CAPSULE PO SCH (15:13)
[2022-03-08] MEDS ORDERED: GENTAMICIN 100MG PREMIX 50 ML IV SCH (20:00)
[2022-03-09] VITALS (12 sets, daily range): BP systolic 97–134; BP diastolic 58–96
[2022-03-09] MEDS: IPRATROPIUM/ALBUTEROL 0.5-3(2.5)MG/3ML NEB HHN SCH ×4 (01:48→20:47)
[2022-03-09] MEDS: SODIUM CHLORIDE 0.45% 1,000 ML IV SCH ×2 (01:58→13:54)
[2022-03-09] MEDS ORDERED: GENTAMICIN 100MG PREMIX 50 ML IV SCH (02:00)
[2022-03-09] MEDS: PIPERACILLIN/TAZOBACTAM 3.375G in DEXT 5% WATER 50ML IV SCH ×2 (05:29→13:54)
[2022-03-09 06:45] LABS: HEMATOCRIT. 37.4 % (42.0-52.0); HEMOGLOBIN. 12.6 g/dL (14.0-18.0); MEAN CORPUSCULAR HEMOGLOBIN 31.7 pg (28.0-32.0); MEAN PLATELET VOLUME 10.4 fl (7.4-10.4); PLATELET 116 x1000/uL (130-400); RED BLOOD CELL COUNT 3.98 mill/uL (4.7-6.1); RED CELL DISTRIBUTION WIDTH 15.2 % (11.6-14.6)
[2022-03-09 08:35] LABS: CHLORIDE 107 mEq/L (98-107)
[2022-03-09 08:48] LABS: BETA HYDROXYBUTYRATE 0.1 mMol/L (0.0-0.3); PHOSPHORUS 2.8 mg/dL (2.5-4.9)
[2022-03-09] MEDS: APIXABAN 5 MG TABLET PO SCH ×2 (08:58→18:16)
[2022-03-09] MEDS: METOPROLOL TARTRATE 25MG TABLET PO SCH ×2 (08:59→21:00)
[2022-03-09] MEDS: FINASTERIDE 5MG TABLET PO SCH (08:59)
[2022-03-09] MEDS: TAMSULOSIN HCL 0.4MG SR CAPSULE PO SCH (08:59)
[2022-03-09] MEDS ORDERED: CEFTRIAXONE 2 G PREMIX 50 ML IV SCH (14:45)
[2022-03-09] MEDS ORDERED: NA PHOS,M-B/NA PHOS,DI-BA ENEMA 118ML PR PRN (15:00)
[2022-03-09] MEDS: CEFTRIAXONE 2 G in DEXTROSE 5% WATER 50 ML IV SCH (16:52)
[2022-03-09] MEDS: AMBRISENTAN 5 MG PO SCH (18:17)
[2022-03-10] VITALS (11 sets, daily range): BP systolic 94–121; BP diastolic 31–72
[2022-03-10] MEDS: IPRATROPIUM/ALBUTEROL 0.5-3(2.5)MG/3ML NEB HHN SCH ×4 (01:57→20:30)
[2022-03-10 02:00] LABS: CHLORIDE 109 mEq/L (98-107)
[2022-03-10] MEDS: SODIUM CHLORIDE 0.45% 1,000 ML IV SCH ×3 (03:21→20:00)
[2022-03-10 06:41] LABS: PLATELET ESTIMATE SLIGHTLY DECREASED
[2022-03-10] MEDS: APIXABAN 5 MG TABLET PO SCH ×2 (08:18→16:00)
[2022-03-10] MEDS: METOPROLOL TARTRATE 25MG TABLET PO SCH ×2 (08:18→20:01)
[2022-03-10] MEDS: TAMSULOSIN HCL 0.4MG SR CAPSULE PO SCH (08:19)
[2022-03-10] MEDS: FINASTERIDE 5MG TABLET PO SCH (08:19)
[2022-03-10] MEDS ORDERED: LIDOCAINE HCL 1% 10 MG/ML 10ML VIAL ONE (08:21)
[2022-03-10] MEDS: AMBRISENTAN 5 MG PO SCH (08:27)
[2022-03-10 09:18] LABS: BASOPHILS % 0.1 % (0.0-2.0); EOSINOPHILS % 1.5 % (0.0-5.0); HEMATOCRIT. 38.7 % (42.0-52.0); HEMOGLOBIN. 12.7 g/dL (14.0-18.0); LYMPHOCYTES % 17.1 % (20.0-50.0); MEAN CORPUSCULAR HEMOGLOBIN 31.7 pg (28.0-32.0); MEAN CORPUSCULAR VOLUME 96.4 fL (80.0-94.0); MEAN PLATELET VOLUME 10.2 fl (7.4-10.4); MONOCYTES % 12.9 % (2.0-8.0); NEUTROPHILS % 68.4 % (40.0-76.0); PLATELET 100 x1000/uL (130-400); RED BLOOD CELL COUNT 4.01 mill/uL (4.7-6.1); RED CELL DISTRIBUTION WIDTH 15.1 % (11.6-14.6)
[2022-03-10 09:34] LABS: CHLORIDE 108 mEq/L (98-107)
[2022-03-10] MEDS: CEFTRIAXONE 2 G in DEXTROSE 5% WATER 50 ML IV SCH (15:05)
[2022-03-11] VITALS (11 sets, daily range): BP systolic 107–142; BP diastolic 58–86
[2022-03-11] MEDS: IPRATROPIUM/ALBUTEROL 0.5-3(2.5)MG/3ML NEB HHN SCH ×3 (01:07→15:45)
[2022-03-11 06:49] LABS: BASOPHILS % 0.1 % (0.0-2.0); HEMATOCRIT. 37.5 % (42.0-52.0); HEMOGLOBIN. 12.6 g/dL (14.0-18.0); LYMPHOCYTES % 19.7 % (20.0-50.0); MEAN CORPUSCULAR HEMOGLOBIN 31.7 pg (28.0-32.0); MEAN CORPUSCULAR VOLUME 94.4 fL (80.0-94.0); MEAN PLATELET VOLUME 10.4 fl (7.4-10.4); MONOCYTES % 12.6 % (2.0-8.0); NEUTROPHILS % 64.6 % (40.0-76.0); PLATELET 107 x1000/uL (130-400); RED BLOOD CELL COUNT 3.97 mill/uL (4.7-6.1); RED CELL DISTRIBUTION WIDTH 14.7 % (11.6-14.6)
[2022-03-11 06:52] LABS: CHLORIDE 109 mEq/L (98-107)
[2022-03-11] MEDS ORDERED: POTASSIUM CHLORIDE 20MEQ TABLET SR PO NR (07:15)
[2022-03-11] MEDS: AMBRISENTAN 5 MG PO SCH (08:02)
[2022-03-11] MEDS: FINASTERIDE 5MG TABLET PO SCH (08:02)
[2022-03-11] MEDS: APIXABAN 5 MG TABLET PO SCH ×2 (08:02→16:43)
[2022-03-11] MEDS: METOPROLOL TARTRATE 25MG TABLET PO SCH (08:03)
[2022-03-11] MEDS: TAMSULOSIN HCL 0.4MG SR CAPSULE PO SCH ×2 (09:11→16:43)
[2022-03-11] MEDS: CEFTRIAXONE 2 G in DEXTROSE 5% WATER 50 ML IV SCH (16:37)
== END 2022-03-11 19:57 | disposition home health service (06) | DRG 871 ==
LOC: ER 07:36 → 5EST 08:41 → EDBEDREQ 08:46 → ENRESERV 12:12
PROVIDERS: ADMIT Internal Medicine Nephrology; ATTEND Internal Medicine Nephrology
PROC: 5A09357 Assistance with Respiratory Ventilation, Less than 24 Consecutive Hours, Continuous Positive Airway Pressure (ICD-10-PCS; 2022-03-08)
PROC: 5A09357 Assistance with Respiratory Ventilation, Less than 24 Consecutive Hours, Continuous Positive Airway Pressure (ICD-10-PCS; 2022-03-09)
PROC: 02HV33Z Insertion of Infusion Device into Superior Vena Cava, Percutaneous Approach (ICD-10-PCS; principal; 2022-03-10)
PROC: B548ZZA Ultrasonography of Superior Vena Cava, Guidance (ICD-10-PCS; 2022-03-10)
PROC: 5A09357 Assistance with Respiratory Ventilation, Less than 24 Consecutive Hours, Continuous Positive Airway Pressure (ICD-10-PCS; 2022-03-10)
PROC: 5A09357 Assistance with Respiratory Ventilation, Less than 24 Consecutive Hours, Continuous Positive Airway Pressure (ICD-10-PCS; 2022-03-11)
DX: A41.51 Sepsis due to Escherichia coli [E. coli] (principal); J96.21 Acute and chronic respiratory failure with hypoxia; J18.9 Pneumonia, unspecified organism; I13.0 Hypertensive heart and chronic kidney disease with heart failure and stage 1 through stage 4 chronic kidney disease, or unspecified chronic kidney disease; I48.92 Unspecified atrial flutter; Z68.42 Body mass index [BMI] 45.0-49.9, adult; I42.9 Cardiomyopathy, unspecified; J44.0 Chronic obstructive pulmonary disease with (acute) lower respiratory infection; I50.42 Chronic combined systolic (congestive) and diastolic (congestive) heart failure; E78.5 Hyperlipidemia, unspecified; I25.10 Atherosclerotic heart disease of native coronary artery without angina pectoris; I27.20 Pulmonary hypertension, unspecified; N18.30 Chronic kidney disease, stage 3 unspecified; N40.1 Benign prostatic hyperplasia with lower urinary tract symptoms; R33.8 Other retention of urine; K59.00 Constipation, unspecified; R74.01 Elevation of levels of liver transaminase levels; I48.91 Unspecified atrial fibrillation; G47.33 Obstructive sleep apnea (adult) (pediatric); E78.00 Pure hypercholesterolemia, unspecified; E66.9 Obesity, unspecified; K76.9 Liver disease, unspecified; Z20.822 Contact with and (suspected) exposure to COVID-19; K80.20 Calculus of gallbladder without cholecystitis without obstruction; E11.65 Type 2 diabetes mellitus with hyperglycemia; E11.22 Type 2 diabetes mellitus with diabetic chronic kidney disease; D69.6 Thrombocytopenia, unspecified; T38.0X5A Adverse effect of glucocorticoids and synthetic analogues, initial encounter; Z79.899 Other long term (current) drug therapy; Z82.49 Family history of ischemic heart disease and other diseases of the circulatory system; Z95.1 Presence of aortocoronary bypass graft; Z95.0 Presence of cardiac pacemaker; Y92.89 Other specified places as the place of occurrence of the external cause; Z91.018 Allergy to other foods; Z79.82 Long term (current) use of aspirin
CPT/HCPCS: 36415; 36573; 36600; 71045; 74018; 74176; 76700; 78582; 80048; 80053; 80076; 81003; 82010; 82375; 82805; 82962; 83036; 83605; 83880; 84100; 84145; 84153; 84481; 84484; 85025; 87077; 87186; 87426; 93005; 93306; 93970; 94640; 94660; 97162; 97166; 99291; A9558; C1725; C9803; J0696; J1580; J1650; J1940; J1956; J2543; J2930; J3370; J3475; J3490; J7030; J7050; J7060; A4315; G0103

== ENCOUNTER 2025-01-02 07:11 | Inpatient (IN) | payer BC ==
[~2025-01-02] VITALS: Ht 172.7 cm; Wt 93.4 kg
[~2025-01-02 07:11] MED LIST changes: +ASCO500C14 PO; -ASCO500C15 PO; -AZEL205. INH; +AZEL205.2 INH; -OMEG-161 PO; +OMEG-221 PO
[2025-01-02 08:49] LABS: BASOPHILS % 0.7 % (0.0-2.0); EOSINOPHILS % 2.9 % (0.0-5.0); HEMATOCRIT. 47.9 % (42.0-52.0); HEMOGLOBIN. 16.3 g/dL (14.0-18.0); LYMPHOCYTES % 24.3 % (20.0-50.0); MEAN CORPUSCULAR HEMOGLOBIN 33.6 pg (28.0-32.0); MEAN CORPUSCULAR HGB CONC 34.1 g/dL (31.0-37.0); MEAN CORPUSCULAR VOLUME 98.5 fL (80.0-94.0); MEAN PLATELET VOLUME 10.2 fl (7.4-10.4); MONOCYTES % 11.2 % (2.0-8.0); NEUTROPHILS % 60.9 % (40.0-76.0); PLATELET 106 x1000/uL (130-400); RED BLOOD CELL COUNT 4.86 mill/uL (4.7-6.1); RED CELL DISTRIBUTION WIDTH 14.1 % (11.6-14.6); WHITE BLOOD COUNT 3.3 x1000/uL (4.5-11.0)
[2025-01-02 08:55] LABS: CARBON DIOXIDE 30 mEq/L (21-32); CHLORIDE 108 mEq/L (98-107); POTASSIUM 3.5 mEq/L (3.5-5.1); SODIUM 143 mEq/L (136-145)
[2025-01-02 09:01] LABS: GLUCOSE 117 mg/dL (70-105); UREA NITROGEN BLOOD 10 mg/dL (9-23)
[2025-01-02 09:04] LABS: TROPONIN I HIGH SENSITIVITY 14 ng/L (3.0-53)
[2025-01-02] MEDS ORDERED: LIDOCAINE HCL 1% 20ML VIAL ONE (11:17)
[2025-01-02] MEDS ORDERED: IODIXANOL 320 MG/ML 150ML BOTTLE IV ONE (11:17)
[2025-01-02] MEDS ORDERED: HEPARIN 1000 UNITS/ML 10ML ONE (11:17)
[2025-01-02] MEDS ORDERED: DIPHENHYDRAMINE 50MG/ML VIAL ONE (11:17)
[2025-01-02] MEDS ORDERED: IPRATROPIUM/ALBUTEROL 0.5-3(2.5)MG/3ML NEB HHN PRN (12:30)
[2025-01-02] MEDS ORDERED: MIDAZOLAM HCL 2 MG/2 ML VIAL ONE (12:34)
[2025-01-02] MEDS ORDERED: FENTANYL CITRATE/PF 50MCG/ML 2ML VIAL ONE (12:34)
[2025-01-02 14:00] VITALS: BP 109/74; PULSE 77; RESP 20; TEMP 36.6; O2SAT 97
[2025-01-02] MEDS ORDERED: ATROPINE SULFATE 1MG/10ML SYR IV PRN (14:30)
[2025-01-02] MEDS ORDERED: ACETAMINOPHEN 325MG TABLET PO PRN (14:30)
[2025-01-02 14:39] VITALS: BP 109/74; PULSE 77; RESP 20; TEMP 36.6
[2025-01-02] MEDS: SODIUM CHLORIDE 0.45% 500 ML IV SCH (14:55)
[2025-01-02 16:00] VITALS: BP 125/82; PULSE 85; RESP 17; TEMP 36.7; O2SAT 99
[2025-01-02 17:38] LABS: INR 1.1; PROTHROMBIN TIME 11.9 sec (9.6-11.0)
[2025-01-02 20:00] VITALS: BP 110/71; PULSE 80; RESP 22; TEMP 36.8; O2SAT 98
[2025-01-03] VITALS (24 sets, daily range): BP systolic 112–175; BP diastolic 72–161; PULSE 72–101; RESP 7–24; TEMP 36.3–36.9; O2SAT 95–100
[2025-01-03] MEDS ORDERED: COR3 PO (08:08)
[2025-01-03 08:13] LABS: BASOPHILS % 0.3 % (0.0-2.0); EOSINOPHILS % 1.8 % (0.0-5.0); HEMATOCRIT. 45.8 % (42.0-52.0); HEMOGLOBIN. 15.3 g/dL (14.0-18.0); LYMPHOCYTES % 20.6 % (20.0-50.0); MEAN CORPUSCULAR HEMOGLOBIN 32.8 pg (28.0-32.0); MEAN CORPUSCULAR HGB CONC 33.5 g/dL (31.0-37.0); MEAN CORPUSCULAR VOLUME 97.9 fL (80.0-94.0); MEAN PLATELET VOLUME 9.9 fl (7.4-10.4); MONOCYTES % 10.4 % (2.0-8.0); NEUTROPHILS % 66.9 % (40.0-76.0); PLATELET 99 x1000/uL (130-400); RED BLOOD CELL COUNT 4.68 mill/uL (4.7-6.1); RED CELL DISTRIBUTION WIDTH 14.3 % (11.6-14.6); WHITE BLOOD COUNT 4.1 x1000/uL (4.5-11.0)
[2025-01-03] MEDS ORDERED: FURO40TA5 PO (08:13)
[2025-01-03] MEDS ORDERED: DAPA10TA PO (08:13)
[2025-01-03] MEDS ORDERED: ATOR20TA65 PO (08:13)
[2025-01-03] MEDS ORDERED: APIX5TAB PO (08:13)
[2025-01-03 08:28] LABS: CARBON DIOXIDE 27 mEq/L (21-32); CHLORIDE 107 mEq/L (98-107); POTASSIUM 3.5 mEq/L (3.5-5.1); SODIUM 141 mEq/L (136-145)
[2025-01-03 08:34] LABS: CREATININE 0.9 mg/dL (0.6-1.3); GLUCOSE 95 mg/dL (70-105); UREA NITROGEN BLOOD 11 mg/dL (9-23)
[2025-01-03] MEDS: KCL 20MEQ/100ML PREMIX 100 ML IV NR (09:39)
[2025-01-03] MEDS: FUROSEMIDE 40MG TABLET PO SCH (09:52)
[2025-01-03] MEDS: CARVEDILOL 3.125 MG TABLET PO SCH (09:53)
[2025-01-03] MEDS: HYDROCHLOROTHIAZIDE 25MG TABLET PO SCH (09:54)
[2025-01-03] MEDS: FINASTERIDE 5MG TABLET PO SCH (10:00)
[2025-01-03] MEDS ORDERED: IODIXANOL 320 MG/ML 150ML BOTTLE IV ONE (12:13)
[2025-01-03] MEDS ORDERED: EPINEPHRINE 0.1MG/ML (1:10,000) 10ML SYR ONE (12:13)
[2025-01-03] MEDS ORDERED: HEPARIN 1000 UNITS/ML 10ML ONE ×2 (12:14→13:29)
[2025-01-03] MEDS ORDERED: LIDOCAINE HCL 1% 20ML VIAL ONE (12:15)
[2025-01-03] MEDS ORDERED: ATROPINE SULFATE 1MG/10ML SYR ONE (12:15)
[2025-01-03] MEDS: POTASSIUM CHLORIDE 20MEQ TABLET SR PO NR (12:46)
[2025-01-03] MEDS ORDERED: ERGO1250 PO (13:15)
[2025-01-03] MEDS ORDERED: FENTANYL CITRATE/PF 50MCG/ML 2ML VIAL ONE ×2 (13:15→15:00)
[2025-01-03] MEDS ORDERED: FLUT1BLS9 PO (13:15)
[2025-01-03] MEDS ORDERED: AMBR5TAB5 PO (13:15)
[2025-01-03] MEDS ORDERED: MIDAZOLAM HCL 2 MG/2 ML VIAL ONE ×3 (13:15→15:00)
[2025-01-03] MEDS ORDERED: DIPHENHYDRAMINE 50MG/ML VIAL ONE (13:24)
[2025-01-03] MEDS ORDERED: NOREPINEPHRINE 8MG/250ML PMX 250 ML IV ONE (14:11)
[2025-01-03] MEDS ORDERED: ASPIRIN 325MG TABLET ONE (15:14)
[2025-01-03] MEDS ORDERED: CLOPIDOGREL 75MG TABLET ONE (15:14)
[2025-01-03] MEDS ORDERED: ATROPINE SULFATE 1MG/10ML SYR IV PRN (16:00)
[2025-01-03] MEDS ORDERED: ACETAMINOPHEN 325MG TABLET PO PRN (16:00)
[2025-01-03] MEDS: SODIUM CHLORIDE 0.45% 1,000 ML IV SCH (16:33)
[2025-01-03] MEDS: ATORVASTATIN CALCIUM 20MG TABLET PO SCH (20:46)
[2025-01-04] VITALS (25 sets, daily range): BP systolic 85–131; BP diastolic 49–87; PULSE 72–105; RESP 15–26; TEMP 36.5–36.9; O2SAT 96–100
[2025-01-04 06:16] LABS: BASOPHILS % 0.3 % (0.0-2.0); EOSINOPHILS % 1.8 % (0.0-5.0); HEMATOCRIT. 45.7 % (42.0-52.0); HEMOGLOBIN. 15.9 g/dL (14.0-18.0); LYMPHOCYTES % 13.4 % (20.0-50.0); MEAN CORPUSCULAR HGB CONC 34.7 g/dL (31.0-37.0); MEAN PLATELET VOLUME 9.8 fl (7.4-10.4); MONOCYTES % 11.5 % (2.0-8.0); PLATELET 103 x1000/uL (130-400); RED BLOOD CELL COUNT 4.66 mill/uL (4.7-6.1); RED CELL DISTRIBUTION WIDTH 14.1 % (11.6-14.6); WHITE BLOOD COUNT 4.8 x1000/uL (4.5-11.0)
[2025-01-04 06:30] LABS: CARBON DIOXIDE 27 mEq/L (21-32); CHLORIDE 106 mEq/L (98-107); POTASSIUM 3.5 mEq/L (3.5-5.1); SODIUM 140 mEq/L (136-145)
[2025-01-04 06:31] LABS: CALCIUM 9.5 mg/dL (8.7-10.4)
[2025-01-04 06:36] LABS: CREATININE 0.9 mg/dL (0.6-1.3); GLUCOSE 96 mg/dL (70-105)
[2025-01-04 06:37] LABS: UREA NITROGEN BLOOD 14 mg/dL (9-23)
[2025-01-04] MEDS: ASPIRIN 81MG TABLET PO SCH (08:28)
[2025-01-04] MEDS: CLOPIDOGREL 75MG TABLET PO SCH (08:29)
[2025-01-04] MEDS: POTASSIUM CHLORIDE 20MEQ TABLET SR PO SCH (08:29)
[2025-01-04] MEDS: POTASSIUM CHLORIDE 20MEQ TABLET SR PO NR (08:29)
[2025-01-04] MEDS ORDERED: AMBRISENTAN 5MG TAB PO SCH (12:00)
[2025-01-04] MEDS ORDERED: APIXABAN 5 MG TABLET PO SCH (21:00)
[2025-01-05] MEDS ORDERED: NON FORMULARY MED PO SCH (09:00)
== END 2025-01-04 12:45 | disposition home or self-care (01) | DRG 216 ==
LOC: ER 07:11 → 3WST 08:56 → EDBEDREQTM 09:08 → EDBEDREQ 09:08 → EDBEDREQSVC 09:32 → CVICU 01-03 15:39
PROVIDERS: ADMIT Internal Medicine Nephrology; ATTEND Internal Medicine Nephrology
PROC: 4A023N7 Measurement of Cardiac Sampling and Pressure, Left Heart, Percutaneous Approach (ICD-10-PCS; 2025-01-02)
PROC: B211YZZ Fluoroscopy of Multiple Coronary Arteries using Other Contrast (ICD-10-PCS; 2025-01-02)
PROC: B41DYZZ Fluoroscopy of Aorta and Bilateral Lower Extremity Arteries using Other Contrast (ICD-10-PCS; 2025-01-02)
PROC: B218YZZ Fluoroscopy of Left Internal Mammary Bypass Graft using Other Contrast (ICD-10-PCS; 2025-01-02)
PROC: B212YZZ Fluoroscopy of Single Coronary Artery Bypass Graft using Other Contrast (ICD-10-PCS; 2025-01-02)
PROC: 5A0221D Assistance with Cardiac Output using Impeller Pump, Continuous (ICD-10-PCS; principal; 2025-01-03)
PROC: 027034Z Dilation of Coronary Artery, One Artery with Drug-eluting Intraluminal Device, Percutaneous Approach (ICD-10-PCS; 2025-01-03)
PROC: 02HA3RJ Insertion of Short-term External Heart Assist System into Heart, Intraoperative, Percutaneous Approach (ICD-10-PCS; 2025-01-03)
PROC: 02F03ZZ Fragmentation in Coronary Artery, One Artery, Percutaneous Approach (ICD-10-PCS; 2025-01-03)
PROC: 02C03ZZ Extirpation of Matter from Coronary Artery, One Artery, Percutaneous Approach (ICD-10-PCS; 2025-01-03)
PROC: B240ZZ3 Ultrasonography of Single Coronary Artery, Intravascular (ICD-10-PCS; 2025-01-03)
PROC: 4A023N7 Measurement of Cardiac Sampling and Pressure, Left Heart, Percutaneous Approach (ICD-10-PCS; 2025-01-03)
PROC: B211YZZ Fluoroscopy of Multiple Coronary Arteries using Other Contrast (ICD-10-PCS; 2025-01-03)
DX: I13.0 Hypertensive heart and chronic kidney disease with heart failure and stage 1 through stage 4 chronic kidney disease, or unspecified chronic kidney disease (principal); I50.23 Acute on chronic systolic (congestive) heart failure; I48.92 Unspecified atrial flutter; I25.110 Atherosclerotic heart disease of native coronary artery with unstable angina pectoris; R73.9 Hyperglycemia, unspecified; N40.0 Benign prostatic hyperplasia without lower urinary tract symptoms; E78.00 Pure hypercholesterolemia, unspecified; G47.33 Obstructive sleep apnea (adult) (pediatric); I48.0 Paroxysmal atrial fibrillation; N18.30 Chronic kidney disease, stage 3 unspecified; I27.20 Pulmonary hypertension, unspecified; D72.819 Decreased white blood cell count, unspecified; D69.6 Thrombocytopenia, unspecified; I25.5 Ischemic cardiomyopathy; J44.89 Other specified chronic obstructive pulmonary disease; Z88.8 Allergy status to other drugs, medicaments and biological substances; Z91.018 Allergy to other foods; Z79.01 Long term (current) use of anticoagulants; Z79.899 Other long term (current) drug therapy; Z95.0 Presence of cardiac pacemaker
CPT/HCPCS: 33990; 36415; 71045; 80048; 83880; 84484; 85025; 85347; 92921; 92933; 92978; 93005; 93306; 93458; 93459; 99285; A4606; C1753; C1760; C1769; C1887; C1893; J0461; J1200; J1644; J2250; J3010; J3480; J3490; Q9967; C1724; C1725; C1761; C1847

== ENCOUNTER 2025-06-19 13:57 | Emergency (ER) | payer BC, MEDICARE ==
[~2025-06-19] VITALS: Ht 172.7 cm; Wt 76.0 kg
[~2025-06-19 13:57] MED LIST changes: -AMBR10TA3 PO; +AMBR5TAB5 PO; +APIX5TAB PO; -ASCO500C14 PO; -ASPI-1497 PO; +ATOR20TA65 PO; -AZEL205.2 INH; -CHOL100053 PO; +CLOP-31 PO; +COR3 PO; +DAPA10TA PO; +ERGO1250 PO; +FLUT1BLS11 IH; -FLUT1DIS ORI; +FURO40TA5 PO; -HYDR25TA PO; -HYDR50TA55 PO; -HYDROCHLOROTHIAZIDE PO; -LOSARTAN PO; -METOPROLOL PO; -POTA-189 PO; -SIMV-46 PO
[2025-06-19 14:20] VITALS: O2SAT 98
[2025-06-19] MEDS: FLUORESCEIN SODIUM 1MG/STRIP BOTHEYE STA (15:15)
[2025-06-19] MEDS: TETRACAINE 0.5% OPHTH DROPS 4ML BOTHEYE ONE (15:15)
[2025-06-19 16:04] VITALS: BP 101/60; PULSE 85; RESP 18; TEMP 37.1; O2SAT 98
== END 2025-06-19 16:05 | disposition home or self-care (01) ==
LOC: ER 14:23
DX: H11.31 Conjunctival hemorrhage, right eye (principal); E78.00 Pure hypercholesterolemia, unspecified; I11.0 Hypertensive heart disease with heart failure; I50.9 Heart failure, unspecified; I25.10 Atherosclerotic heart disease of native coronary artery without angina pectoris; Z95.0 Presence of cardiac pacemaker; Z79.899 Other long term (current) drug therapy; Z79.02 Long term (current) use of antithrombotics/antiplatelets; Z79.01 Long term (current) use of anticoagulants; Z79.84 Long term (current) use of oral hypoglycemic drugs; Z79.51 Long term (current) use of inhaled steroids; Z98.890 Other specified postprocedural states
CPT/HCPCS: 99283